=== PATIENT | female | born 1970 | race Two or more races ===

== ENCOUNTER 2021-04-13 18:35 | Emergency (ER) | payer OTHER ==
[~2021-04-13] VITALS: Ht 175.3 cm; Wt 104.3 kg
[2021-04-13] MEDS ORDERED: VASOTEC (18:51)
[2021-04-13] MEDS ORDERED: SKELAXIN800 MG PO (19:35)
[2021-04-13] MEDS ORDERED: CELEBREX200MG PO (19:35)
[2021-04-13] MEDS ORDERED: MEDROLPACK PO (19:35)
== END 2021-04-13 19:41 | disposition home or self-care (01) ==
LOC: ER 18:35
DX: S13.4XXA Sprain of ligaments of cervical spine, initial encounter (principal); X58.XXXA Exposure to other specified factors, initial encounter; Y92.89 Other specified places as the place of occurrence of the external cause

== ENCOUNTER 2022-06-01 21:48 | Inpatient (IN) | payer OTHER ==
[~2022-06-01] VITALS: Ht 170.2 cm; Wt 104.3 kg
[~2022-06-01 21:48] MED LIST: CELEBREX200MG PO; MEDROLPACK PO; SKELAXIN800 MG PO; VASOTEC
[2022-06-01] MEDS ORDERED: VASOTEC5 MG (21:55)
--- NOTE | 2022-06-01 21:56 | NUR ---
PACIENTE FEMENINA ALERTA Y ORIENTADA X3, REFIERE DOLOR DE CUERPO DE SORAIDA, TOS Y FIEBRE.
--- NOTE | 2022-06-02 00:57 | NUR ---
SE ORIENTA PTE SOBRE TX A SEGUIR, EL CUAL REFIERE ENTENDER. SE COLECTAN MUESTRAS UTILIZANDO MEDIDAS ASEPTICAS. SE ADM. MEDICAMENTOS ESPERANZA ORDEN MEDICA.
--- NOTE | 2022-06-02 01:45 | NUR ---
SE ERIKA CBC BAJO MEDIDAS ASEPTICAS...
--- NOTE | 2022-06-02 03:37 | NUR ---
PTE CON HEMOGLOBINA EN 6.1 Y [facility] 15.3, SE ORIENTA A PTE SOBRE EL PROCEDIMIENTO SE LE ERIKA CONSENTIMIENTO EL CUAL FIRMA. PTE TIENE TRANFUCION DE GRANT PRBC AL MOMENTO LE ORDENARON 3 UNIDADES COMPLETA. SE REALIZAN LA LEN DE MUESTRAS BAJO MEDIDAS ASEPTICAS. SE REALIZA LA LLAMADA A BANCO DE GRANT Y SE HABLA CON RODRIGEZ GALICIA 3:57AM.
--- NOTE | 2022-06-02 07:14 | NUR ---
SE RECIBE PTE ALERTA Y ORIETNADO POR 3 EN EL AREA DE OBSERVACION EN MAYURI CON BARANDAS ELEVADA Y TIMBRE ACCESIBLE, PTE NO PRESENTA DOLOR AL MOMENTO PTE EN ESPERA DE 3 UNIDADES DE PRBC Y ESEPRADO AL DR THOMPSON.
[2022-06-04] MEDS ORDERED: FOLIC ACID1 MG PO (12:03)
[2022-06-04] MEDS ORDERED: INTEGRA PLUS C1 EACH PO (12:03)
[2022-06-04] MEDS ORDERED: PYRIDOXINE HCL100 MG PO (12:03)
[2022-06-04] MEDS ORDERED: OSEL75CA PO (12:03)
[2022-06-04] MEDS ORDERED: Neurin-Sl Tablet Sl SL (12:03)
== END 2022-06-04 13:42 | disposition home or self-care (01) | DRG 812 ==
LOC: ER 21:48 → SEC-K 06-02 10:52 → MEDJ 06-02 10:52
PROVIDERS: ADMIT Internal Medicine; ATTEND Internal Medicine
PROC: 30233N1 Transfusion of Nonautologous Red Blood Cells into Peripheral Vein, Percutaneous Approach (ICD-10-PCS; principal; 2022-06-02)
PROC: 8E0ZXY6 Isolation (ICD-10-PCS; 2022-06-02)
DX: D64.9 Anemia, unspecified (principal); J10.1 Influenza due to other identified influenza virus with other respiratory manifestations; I10 Essential (primary) hypertension; D25.9 Leiomyoma of uterus, unspecified; Z20.822 Contact with and (suspected) exposure to COVID-19

== ENCOUNTER 2025-06-07 12:08 | Emergency (ER) | payer OTHER ==
[~2025-06-07] VITALS: Ht 177.8 cm; Wt 104.3 kg
[~2025-06-07 12:08] MED LIST changes: +FOLIC ACID1 MG PO; +INTEGRA PLUS C1 EACH PO; +Neurin-Sl Tablet Sl SL; +OSEL75CA PO; +PYRIDOXINE HCL100 MG PO; +VASOTEC5 MG
[2025-06-07] MEDS ORDERED: KETOROLAC TROMETHAMINE 30 MG VIAL IM STA (13:55)
[2025-06-07] MEDS ORDERED: ORPHENADRINE CITRATE 30 MG/ML AMPUL IM STA (13:55)
[2025-06-07] MEDS ORDERED: KETOROLAC TROMETHAMINE 30 MG VIAL ONE (15:45)
[2025-06-07] MEDS ORDERED: ORPHENADRINE CITRATE 30 MG/ML AMPUL ONE (15:45)
[2025-06-07] MEDS ORDERED: DICLOFENAC POTA50 MG PO (16:13)
== END 2025-06-07 19:20 | disposition home or self-care (01) ==
LOC: ER 12:09
DX: M75.32 Calcific tendinitis of left shoulder (principal)